=== PATIENT | male | born 1990 | race Hispanic/Latino ===

== ENCOUNTER 2020-02-22 19:36 | Emergency (ER) | payer MEDICARE ==
[2020-02-22 19:57] VITALS: BP 124/80
--- NOTE | 2020-02-22 20:41 | Emergency Department Report ---
Blank Doc - Documentation Documentation: 29-year-old male that presents with left wrist hand s/p hitting wall. This initial assessment/diagnostic orders/clinical plan/treatment(s) is/are subject to change based on patient's health status, clinical progression and re- assessment by fellow clinical providers in the ED. Further treatment and workup at subsequent clinical providers discretion. Patient/guardians urged not to elope from the ED as their condition may be serious if not clinically assessed and managed. Initial orders include: 1- Patient sent to [facility] for further evaluation and treatment 2- xrays
--- NOTE | 2020-02-22 21:52 | XRay Report ---
XR wrist 3+V LT INDICATION / CLINICAL INFORMATION: left wrist pain. COMPARISON: None available. FINDINGS: Carpal rows are maintained. No acute fracture. Normal alignment. Joint spaces are preserved. No katherine tructive osseous lesion or suspicious periosteal reaction. Impression: 1.No acute osseous abnormality. Signer Name: Rickey Masterson MD Signed: 02/22/2020 9:48 PM Workstation Name: [id number]
--- NOTE | 2020-02-22 22:38 | Emergency Department Report ---
ED Upper Extremity Inj HPI - General Chief Complaint: Extremity Injury, Upper Stated Complaint: LEFT HAND INJURY Time Seen by Provider: 02/22/20 20:41 Source: patient Mode of arrival: Ambulatory Limitations: Other - History of Present Illness Initial Comments: 29-year-old male presents to ED from snf for evaluation of left hand. Patient apparently hit a wall, and sustained some abrasions to the wrist. Complaint: Injury to:: left, wrist -: This evening Other Extremity Injury: Wrist: Left Place: home Context: direct blow Associated Symptoms: denies other symptoms - Related Data Allergies Allergy/AdvReac Type Severity Reaction Status Date / Time No Known Allergies Allergy Unverified 02/03/20 22:52 ED Review of Systems ROS: Stated complaint: LEFT HAND INJURY Other details as noted in HPI Comment: All other systems reviewed and negative Musculoskeletal: as per HPI ED Past Medical Hx - Past Medical History Previous Medical History?: Yes Hx Psychiatric Treatment: Yes (anxiety, anger, Autism) Additional medical history: Bilateral Nephrolithiasis - Social History Smoking Status: Never Smoker ED Physical Exam - General Limitations: Other General appearance: alert, in no apparent distress - Head Head exam: Present: atraumatic, normocephalic - Eye Eye exam: Present: normal appearance, EOMI - ENT ENT exam: Present: mucous membranes moist - Neck Neck exam: Present: normal inspection - Respiratory Respiratory exam: Present: normal lung sounds bilaterally. Absent: respiratory distress - Cardiovascular Cardiovascular Exam: Present: regular rate, normal rhythm - Extremities Exam Extremities exam: Present: other (Range of motion normal in left hand and wrist, no deformity or swelling noted, no tenderness present, abrasion noted to the left forearm) - Neurological Exam Neurological exam: Present: alert. Absent: motor sensory deficit - Psychiatric Psychiatric exam: Present: normal affect, normal mood - Skin Skin exam: Present: warm, dry, intact, normal color ED Course Vital Signs 02/22/20 19:50 Temperature 98.4 F Pulse Rate 94 H Respiratory 16 Rate Blood Pressure 124/80 O2 Sat by Pulse 94 Oximetry ED Medical Decision Making - Radiology Data Radiology results: report reviewed, image reviewed - Differential Diagnosis Fracture, contusion, sprain Critical care attestation.: If time is entered above; I have spent that time in minutes in the direct care of this critically ill patient, excluding procedure time. ED Disposition Clinical Impression: Contusion of left wrist Disposition: DC-01 TO HOME OR SELFCARE Is pt being admited?: No Condition: Stable Instructions: Contusion in Adults (ED) Referrals: PRIMARY CARE, [Primary Care Provider] - as needed Time of Disposition: 22:37
== END 2020-02-22 22:45 | disposition home or self-care (01) ==
LOC: ED 19:36
DX: S60.212A Contusion of left wrist, initial encounter (principal); F41.9 Anxiety disorder, unspecified; F84.0 Autistic disorder; W22.8XXA Striking against or struck by other objects, initial encounter; Y93.89 Activity, other specified; Y92.89 Other specified places as the place of occurrence of the external cause; Y99.8 Other external cause status
CPT/HCPCS: 99283

== ENCOUNTER 2020-03-09 20:19 | Emergency (ER) | payer MEDICARE, MEDICAID ==
[2020-03-09 22:46] VITALS: BP 128/69
--- NOTE | 2020-03-09 23:06 | Emergency Department Report ---
ED Psych HPI - General Chief Complaint: Psych Stated Complaint: MOOD SWINGS Time Seen by Provider: 03/09/20 22:53 Source: patient Mode of arrival: Ambulatory - History of Present Illness Initial Comments: Patient is a 29-year-old male that presents emergency room for evaluation of mood swings. Patient states he complains of anger issues. Patient states feels anger inside of him that he wants some help controlling. Patient denies suicidal homicidal ideations. Patient states he is depressed but he is taking his medications for. Patient states he has been having mood swings. Patient denies homicidal ideations. Patient denies hallucinations. Patient denies racing thoughts. Patient denies recent travel. Patient denies recent international travel. Patient denies exposure to the novel coronavirus. Patient denies sick contacts. Patient denies fever and chills. Patient denies cough. Patient denies diarrhea. Patient denies coming in contact with anybody with symptoms of the novel coronavirus. Complaint: other -: Gradual Associated Psychiatric Symptoms: depression History of same: Yes Quality: constant Improves With: therapy Worsens With: none Context: significant life stressor Associated Symptoms: denies: confusion, headache, shortness of breath, nausea, vomiting, syncope, insomnia Treatments Prior to Arrival: none - Related Data Allergies Allergy/AdvReac Type Severity Reaction Status Date / Time No Known Allergies Allergy Unverified 02/03/20 22:52 ED Review of Systems ROS: Stated complaint: MOOD SWINGS Other details as noted in HPI Constitutional: denies: chills, fever Eyes: denies: eye pain, eye discharge, vision change ENT: denies: ear pain, throat pain Respiratory: denies: cough, shortness of breath, wheezing Cardiovascular: denies: chest pain, palpitations Endocrine: no symptoms reported Gastrointestinal: denies: abdominal pain, nausea, diarrhea Genitourinary: denies: urgency, dysuria Musculoskeletal: denies: back pain, joint swelling, arthralgia Skin: denies: rash, lesions Neurological: denies: headache, weakness, paresthesias Psychiatric: depression. denies: anxiety, auditory hallucinations, visual hallucinations, homicidal thoughts, suicidal thoughts Hematological/Lymphatic: denies: easy bleeding, easy bruising ED Past Medical Hx - Past Medical History Previous Medical History?: Yes Hx Psychiatric Treatment: Yes (anxiety, anger, Autism) Additional medical history: Bilateral Nephrolithiasis - Surgical History Past Surgical History?: No - Family History Family history: no significant - Social History Smoking Status: Never Smoker Substance Use Type: None ED Physical Exam - General Limitations: No Limitations General appearance: alert, in no apparent distress - Head Head exam: Present: atraumatic, normocephalic - Eye Eye exam: Present: normal appearance, PERRL Pupils: Present: normal accommodation - ENT ENT exam: Present: mucous membranes moist - Neck Neck exam: Present: normal inspection - Respiratory Respiratory exam: Present: normal lung sounds bilaterally. Absent: respiratory distress - Cardiovascular Cardiovascular Exam: Present: regular rate, normal rhythm. Absent: systolic murmur, diastolic murmur, rubs, gallop - GI/Abdominal GI/Abdominal exam: Present: soft, normal bowel sounds. Absent: distended, tenderness, guarding - Rectal Rectal exam: Present: deferred - Extremities Exam Extremities exam: Present: normal inspection - Back Exam Back exam: Present: normal inspection - Neurological Exam Neurological exam: Present: alert, oriented X3 - Psychiatric Psychiatric exam: Present: flat affect - Skin Skin exam: Present: warm, dry, intact, normal color. Absent: rash ED Course Vital Signs 03/09/20 21:35 Temperature 98.1 F Pulse Rate 133 H Respiratory 17 Rate Blood Pressure 128/69 O2 Sat by Pulse 95 Oximetry - Reevaluation(s) Reevaluation #1: Patient is not suffering from an acute psychiatric emergency that would require a 1013 or a psychiatric hold in the ER. Patient's not require any further emergency medical services. Patient had a medical clearing exam and is medically cleared to be discharged and follow-up with a local psychiatric facility as a volunteer basis or as an outpatient. I discussed all clinical findings with patient. I discussed plan of care with patient. Patient agrees with plan of care. Patient is stable for discharge. Patient will be discharged home. Patient given discharge instructions. Patient voiced understanding of discharge instructions. 03/09/20 23:03 ED Medical Decision Making - Medical Decision Making Patient is a 29-year-old male presents emergency room with complaints of anger issues and mood swings. Patient denies suicidal homicidal ideation. Patient denies hallucinations. Patient does not have any acute psychiatric condition. Patient is stable for discharge. Patient be discharged to follow-up as an outpatient. Patient is discharged and can go directly to [facility] or another local psychiatric facility. Patient does not require any further emergency medical services. Patient does not require 1013 or involuntary ER hold. - Differential Diagnosis anger issues, moodswings Critical care attestation.: If time is entered above; I have spent that time in minutes in the direct care of this critically ill patient, excluding procedure time. ED Disposition Clinical Impression: Anger reaction, Mood swings Disposition: MED SCREENING EXAM-LEFT Is pt being admited?: No Does the pt Need Aspirin: No Condition: Stable Instructions: Mood Disorders (ED) Additional Instructions: Patient to follow-up with primary care in 2 to 3 days. Patient to follow-up with local psychiatric facility as an outpatient as soon as possible.. Patient to increase water. Patient to continue all medications.. Patient to return to the ER if condition worsens, changes or new symptoms arise. Referrals: PRIMARY CARE, [Primary Care Provider] - 2-3 Days [facility] [Outside] - 2-3 Days Time of Disposition: 23:08
== END 2020-03-09 23:14 | disposition left against medical advice (07) ==
LOC: ED 20:19
DX: R45.4 Irritability and anger (principal); F39 Unspecified mood [affective] disorder; Z53.21 Procedure and treatment not carried out due to patient leaving prior to being seen by health care provider